=== PATIENT | female | born 1990 | race Two or more races ===

== ENCOUNTER 2019-04-29 09:25 | Emergency (ER) | payer BC ==
[~2019-04-29] VITALS: Ht 170.2 cm; Wt 100.0 kg
[2019-04-29 09:51] VITALS: BP 162/96
[2019-04-29] MEDS ORDERED: PHENERMINE (09:55)
== END 2019-04-29 13:12 | disposition left against medical advice (07) ==
LOC: ER 09:25
DX: R00.2 Palpitations (principal); Z53.21 Procedure and treatment not carried out due to patient leaving prior to being seen by health care provider